=== PATIENT | female | born 1935 | race Caucasian/White ===

== ENCOUNTER 2016-11-19 20:47 | Emergency (ER) | payer OTHER ==
[~2016-11-19] VITALS: Ht 170.2 cm; Wt 73.3 kg
[~2016-11-19 20:47] MED LIST: ALTACE5 MG PO; ASPIR 8181 M1 PO; ASPIRIN81 M1 PO; B COMPLEX #11 EACH PO; B-COMPLEX-VITA1 EACH PO; BALANCED B COM1 EAC2 PO; BUSPAR5 MG PO; CALTRATE 600600 MG PO; CALTRATE600 MG PO; CARVEDILOL12.5 MG PO; CEREFOLIN TABL1 EACH; COREG12.5 M1 PO; COREG12.5 MG PO; COUMADIN2 MG PO; COUMADIN3 MG PO; COUMADIN5 MG PO; CYMBALTA30 MG PO; ENDOCET 5-3251 EACH PO; GARLIC1000 MG PO; HEALTHY HEART1 EAC1 PO; IRON325 M1 PO; LACTINEX PACKE1 EACH PO; LOVENOX60 MG/0.6 SC; LOVENOX80 MG/0.8 SC; METRONIDAZOLE500 MG PO; NABUMETONE500 M1 PO; NABUMETONE500 MG PO; OMEGA 3 1,0001 EACH PO; OMEPRAZOLE40 M1 PO; RED YEAST RICE600 M1; RED YEAST RICE600 MG PO; SERTRALINE HCL25 MG PO; SIMVASTATIN80 MG PO; TRAMADOL HCL50 MG PO; ULTRAM50 MG PO; VITAMIN B-12500 MC2 PO; VITAMIN B12-FO1 EACH PO; VITAMIN D2000 INTUN PO; VITAMIN E400 UNI6 PO; VYTORIN 10-801 EACH PO; WOMEN'S DAILY1 EAC3 PO; WOMEN'S DAILY1 EACH; XARELTO20 MG PO; Z BEC; ZEGERID OTC 201 EACH PO; ZETIA10 MG PO; ZOLOFT25 MG PO; ZYVOX600 MG PO; vitamin b12
[2016-11-19 21:50] LABS: MCH 31.7 PG (29.0-34.0); MCHC 33.2 G/DL (30.0-36.0); MCV 95.4 FL (83-99); MEAN PLAT.VOLUME 10.4 uM^3 (9.5-12.4); PLATELET COUNT 141 K/uL (156-360); RBC DIS.WIDTH-CV 12.1 % (11.8-14.6); RBC DIS.WIDTH-SD 41.9 % (39-53); RED BLOOD COUNT 3.88 M/uL (3.80-5.20); WHITE BLOOD COUNT 6.7 K/uL (4.1-10.2)
[2016-11-19 22:01] LABS: CHLORIDE 104 mEq/L (99-109); POTASSIUM 4.2 mEq/L (3.7-5.4); SODIUM 140 mEq/L (136-147)
[2016-11-19 22:03] LABS: GLUCOSE 98 mg/dL (70-99)
[2016-11-19 22:05] LABS: ANION GAP 11 MEQ/L (2-14); TOTAL BILIRUBIN 0.3 mg/dL (0.0-1.0)
[2016-11-19 22:07] LABS: ALKALINE PHOSPHATASE 50 IU/L (3-129); GFR ESTIMATE (CALCULATED) 51 mL/min/
[2016-11-19 22:08] LABS: UREA NITROGEN (BUN) 21 mg/dL (9-23)
[2016-11-19] MEDS ORDERED: AUGMENTIN875 MG PO (23:23)
[2016-11-19 23:52] VITALS: BP 138/60
== END 2016-11-19 23:53 | disposition home or self-care (01) ==
LOC: EME 20:47
DX: Y83.8 Other surgical procedures as the cause of abnormal reaction of the patient, or of later complication, without mention of misadventure at the time of the procedure (principal); R18.8 Other ascites; R10.9 Unspecified abdominal pain; K21.9 Gastro-esophageal reflux disease without esophagitis; I48.91 Unspecified atrial fibrillation; I10 Essential (primary) hypertension; E78.5 Hyperlipidemia, unspecified; Z87.891 Personal history of nicotine dependence
CPT/HCPCS: 74177; 80053; 81003; 85027; 99281; 99285; J7040

== ENCOUNTER 2016-11-22 16:04 | Inpatient (IN) | payer OTHER ==
[~2016-11-22] VITALS: Ht 154.9 cm; Wt 61.1 kg
[~2016-11-22 16:04] MED LIST changes: +AUGMENTIN875 MG PO
[2016-11-22 17:22] LABS: EOSINOPHIL (%) 2.4 % (0-5); EOSINOPHIL COUNT 0.1 K/uL (0-0.3); HEMATOCRIT 36.4 % (36.0-46.0); IMMATURE GRANULOCYTE (%) 0.6 % (0.0-0.7); INSTRUMENT ABS NEUTROPHIL CT 3.9 K/uL; LYMPHOCYTE COUNT 0.3 K/uL (1.0-2.8); MCH 31.1 PG (29.0-34.0); MCHC 32.7 G/DL (30.0-36.0); MEAN PLAT.VOLUME 9.3 uM^3 (9.5-12.4); MONOCYTE (%) 11.8 % (3-12); MONOCYTE COUNT 0.6 K/uL (0-0.8); NEUTROPHIL (%) 78.6 % (45-76); NEUTROPHIL COUNT 3.9 K/uL (1.8-6.4); PLATELET COUNT 118 K/uL (156-360); RBC DIS.WIDTH-SD 42.2 % (39-53); RED BLOOD COUNT 3.83 M/uL (3.80-5.20)
[2016-11-22 17:32] LABS: CHLORIDE 104 mEq/L (99-109); POTASSIUM 3.9 mEq/L (3.7-5.4); SODIUM 139 mEq/L (136-147)
[2016-11-22 17:34] LABS: GLUCOSE 99 mg/dL (70-99)
[2016-11-22 17:35] LABS: ANION GAP 13 MEQ/L (2-14)
[2016-11-22 17:38] LABS: GFR ESTIMATE (CALCULATED) 46 mL/min/
[2016-11-22 17:39] LABS: UREA NITROGEN (BUN) 18 mg/dL (9-23)
[2016-11-22] MEDS ORDERED: LINZESS145 MCG PO (18:07)
[2016-11-22 20:35] VITALS: BP 123/59
[2016-11-22 20:40] VITALS: BP 125/59
[2016-11-22 23:58] VITALS: BP 99/47
[2016-11-23 04:10] VITALS: BP 114/58
[2016-11-23 07:02] LABS: HEMATOCRIT 30.2 % (36.0-46.0); MCH 31.4 PG (29.0-34.0); MCHC 32.5 G/DL (30.0-36.0); MCV 96.8 FL (83-99); MEAN PLAT.VOLUME 10.3 uM^3 (9.5-12.4); PLATELET COUNT 109 K/uL (156-360); RBC DIS.WIDTH-CV 12.3 % (11.8-14.6); RBC DIS.WIDTH-SD 43.4 % (39-53); RED BLOOD COUNT 3.12 M/uL (3.80-5.20); WHITE BLOOD COUNT 3.6 K/uL (4.1-10.2)
[2016-11-23 07:13] LABS: ANION GAP 7 MEQ/L (2-14); CHLORIDE 110 MEQ/L (99-109); GFR ESTIMATE (CALCULATED) 51 mL/min/; GLUCOSE 96 mg/dL (70-99); POTASSIUM 3.9 MEQ/L (3.7-5.4); SAMPLE HEMOLYSIS CHECK 0; SAMPLE ICTERIC CHECK 0; SAMPLE LIPEMIA CHECK 0; SODIUM 142 MEQ/L (136-147); UREA NITROGEN (BUN) 17 mg/dL (9-23)
[2016-11-23 07:19] LABS: EOSINOPHIL (%) 3.1 % (0-5); EOSINOPHIL COUNT 0.1 K/uL (0-0.3); IMMATURE GRANULOCYTE (%) 0.6 % (0.0-0.7); INSTRUMENT ABS NEUTROPHIL CT 2.3 K/uL; LYMPHOCYTE COUNT 0.4 K/uL (1.0-2.8); MONOCYTE (%) 19.7 % (3-12); MONOCYTE COUNT 0.7 K/uL (0-0.8); NEUTROPHIL (%) 64.5 % (45-76); NEUTROPHIL COUNT 2.3 K/uL (1.8-6.4)
[2016-11-23 08:24] VITALS: BP 110/55
[2016-11-23 11:49] VITALS: BP 111/53
[2016-11-23 16:33] VITALS: BP 140/61
[2016-11-23 20:00] VITALS: BP 161/68
[2016-11-24] VITALS (7 sets, daily range): BP systolic 110–144; BP diastolic 54–68
[2016-11-24 07:03] LABS: HEMATOCRIT 31.7 % (36.0-46.0); MCH 31.8 PG (29.0-34.0); MCHC 33.1 G/DL (30.0-36.0); MCV 96.1 FL (83-99); MEAN PLAT.VOLUME 10.4 uM^3 (9.5-12.4); PLATELET COUNT 115 K/uL (156-360); RBC DIS.WIDTH-CV 11.8 % (11.8-14.6); RBC DIS.WIDTH-SD 41.5 % (39-53); WHITE BLOOD COUNT 3.9 K/uL (4.1-10.2)
[2016-11-24 07:29] LABS: ALKALINE PHOSPHATASE 49 IU/L (3-129); ANION GAP 13 MEQ/L (2-14); CHLORIDE 110 MEQ/L (99-109); GFR ESTIMATE (CALCULATED) > 59 mL/min/; GLUCOSE 106 mg/dL (70-99); POTASSIUM 4.2 MEQ/L (3.7-5.4); SAMPLE HEMOLYSIS CHECK 0; SAMPLE ICTERIC CHECK 0; SAMPLE LIPEMIA CHECK 0; SODIUM 141 MEQ/L (136-147); TOTAL BILIRUBIN 0.3 MG/DL (0.0-1.0); UREA NITROGEN (BUN) 16 mg/dL (9-23)
[2016-11-24 07:50] LABS: EOSINOPHIL (%) 0 % (0-5); IMMATURE GRANULOCYTE (%) 0.5 % (0.0-0.7); INSTRUMENT ABS NEUTROPHIL CT 3.2 K/uL; LYMPHOCYTE COUNT 0.6 K/uL (1.0-2.8); MONOCYTE (%) 1.6 % (3-12); MONOCYTE COUNT 0.1 K/uL (0-0.8); NEUTROPHIL (%) 83.1 % (45-76); NEUTROPHIL COUNT 3.2 K/uL (1.8-6.4)
[2016-11-25 03:58] VITALS: BP 141/60
[2016-11-25 07:00] LABS: EOSINOPHIL (%) 0.4 % (0-5); HEMATOCRIT 29.3 % (36.0-46.0); IMMATURE GRANULOCYTE (%) 0.6 % (0.0-0.7); INSTRUMENT ABS NEUTROPHIL CT 4.2 K/uL; LYMPHOCYTE COUNT 1.8 K/uL (1.0-2.8); MCH 31.3 PG (29.0-34.0); MCHC 33.1 G/DL (30.0-36.0); MCV 94.5 FL (83-99); MEAN PLAT.VOLUME 10.1 uM^3 (9.5-12.4); MONOCYTE (%) 12.2 % (3-12); MONOCYTE COUNT 0.9 K/uL (0-0.8); NEUTROPHIL (%) 60.4 % (45-76); NEUTROPHIL COUNT 4.2 K/uL (1.8-6.4); PLATELET COUNT 140 K/uL (156-360); RBC DIS.WIDTH-CV 12.1 % (11.8-14.6); RBC DIS.WIDTH-SD 41.8 % (39-53)
[2016-11-25 07:07] LABS: ALKALINE PHOSPHATASE 42 IU/L (3-129); ANION GAP 9 MEQ/L (2-14); CHLORIDE 111 MEQ/L (99-109); GFR ESTIMATE (CALCULATED) > 59 mL/min/; GLUCOSE 95 mg/dL (70-99); POTASSIUM 3.5 MEQ/L (3.7-5.4); SAMPLE HEMOLYSIS CHECK 0; SAMPLE ICTERIC CHECK 0; SAMPLE LIPEMIA CHECK 0; SODIUM 143 MEQ/L (136-147); TOTAL BILIRUBIN 0.3 MG/DL (0.0-1.0); UREA NITROGEN (BUN) 22 mg/dL (9-23)
[2016-11-25 07:41] VITALS: BP 145/65
[2016-11-25] MEDS ORDERED: KEFLEX500 MG PO (09:13)
[2016-11-25] MEDS ORDERED: SIMVASTATIN80 MG PO (11:35)
== END 2016-11-25 13:21 | disposition home health service (06) | DRG 857 ==
LOC: EME 16:04 → EDOF 18:34 → 3EAST 18:34
PROVIDERS: Emergency Medicine; Hospitalist
PROC: 0JB80ZZ Excision of Abdomen Subcutaneous Tissue and Fascia, Open Approach (ICD-10-PCS; principal; 2016-11-23)
DX: T81.4XXA Infection following a procedure, initial encounter (principal); D61.818 Other pancytopenia; I11.0 Hypertensive heart disease with heart failure; I48.0 Paroxysmal atrial fibrillation; I50.9 Heart failure, unspecified; L02.211 Cutaneous abscess of abdominal wall; L03.311 Cellulitis of abdominal wall; I25.10 Atherosclerotic heart disease of native coronary artery without angina pectoris; I87.8 Other specified disorders of veins; E78.5 Hyperlipidemia, unspecified; K21.9 Gastro-esophageal reflux disease without esophagitis; K43.2 Incisional hernia without obstruction or gangrene; K76.0 Fatty (change of) liver, not elsewhere classified; K57.90 Diverticulosis of intestine, part unspecified, without perforation or abscess without bleeding; L03.116 Cellulitis of left lower limb; M41.9 Scoliosis, unspecified; T36.0X5A Adverse effect of penicillins, initial encounter; Z80.1 Family history of malignant neoplasm of trachea, bronchus and lung; Z82.49 Family history of ischemic heart disease and other diseases of the circulatory system; Z86.718 Personal history of other venous thrombosis and embolism; Z87.891 Personal history of nicotine dependence; F41.9 Anxiety disorder, unspecified; R21 Rash and other nonspecific skin eruption; R23.3 Spontaneous ecchymoses; Z95.828 Presence of other vascular implants and grafts; L90.5 Scar conditions and fibrosis of skin; B96.20 Unspecified Escherichia coli [E. coli] as the cause of diseases classified elsewhere
CPT/HCPCS: 74177; 80048; 80053; 80202; 81003; 83605; 85025; 85027; 87040; 87070; 87075; 87077; 87186; 87205; 88305; 99281; 99285; J0131; J0330; J0696; J1100; J1170; J1644; J2405; J2543; J3010; J3370; J7030; J7040; J7050

== ENCOUNTER 2017-03-01 21:02 | Inpatient (IN) | payer OTHER ==
[~2017-03-01] VITALS: Ht 154.9 cm; Wt 74.8 kg
[~2017-03-01 21:02] MED LIST changes: +KEFLEX500 MG PO; +LINZESS145 MCG PO
[2017-03-02] MEDS ORDERED: ALTACE5 MG PO (10:39)
[2017-03-02] MEDS ORDERED: LASIX20 MG PO (10:43)
[2017-03-02 10:44] VITALS: BP 172/69
[2017-03-02 16:35] VITALS: BP 127/59
[2017-03-02 19:45] VITALS: BP 107/51
[2017-03-02 23:31] VITALS: BP 107/57
[2017-03-03 03:15] VITALS: BP 104/52
[2017-03-03 05:55] LABS: HEMATOCRIT 32.7 % (36.0-46.0); MCH 31.5 PG (29.0-34.0); MCHC 32.4 G/DL (30.0-36.0); MCV 97.3 FL (83-99); MEAN PLAT.VOLUME 9.7 uM^3 (9.5-12.4); PLATELET COUNT 115 K/uL (156-360); RBC DIS.WIDTH-CV 12.4 % (11.8-14.6); RBC DIS.WIDTH-SD 44.2 % (39-53); RED BLOOD COUNT 3.36 M/uL (3.80-5.20); WHITE BLOOD COUNT 9.2 K/uL (4.1-10.2)
[2017-03-03 06:20] LABS: ANION GAP 7 MEQ/L (2-14); CHLORIDE 108 MEQ/L (99-109); GFR ESTIMATE (CALCULATED) 51 mL/min/; GLUCOSE 138 mg/dL (70-99); POTASSIUM 4.5 MEQ/L (3.7-5.4); SAMPLE HEMOLYSIS CHECK 0; SAMPLE ICTERIC CHECK 0; SAMPLE LIPEMIA CHECK 0; SODIUM 138 MEQ/L (136-147); UREA NITROGEN (BUN) 18 mg/dL (9-23)
[2017-03-03 08:35] VITALS: BP 132/62
[2017-03-03 12:46] VITALS: BP 111/60
[2017-03-03 15:49] VITALS: BP 136/59
[2017-03-03 20:00] VITALS: BP 148/72
[2017-03-04 00:32] VITALS: BP 119/68
[2017-03-04 02:54] VITALS: BP 125/77
[2017-03-04 04:44] LABS: HEMATOCRIT 30.9 % (36.0-46.0); MCH 31.5 PG (29.0-34.0); MCHC 32.4 G/DL (30.0-36.0); MCV 97.5 FL (83-99); MEAN PLAT.VOLUME 10.3 uM^3 (9.5-12.4); PLATELET COUNT 104 K/uL (156-360); RBC DIS.WIDTH-CV 12.5 % (11.8-14.6); RBC DIS.WIDTH-SD 44.6 % (39-53); RED BLOOD COUNT 3.17 M/uL (3.80-5.20); WHITE BLOOD COUNT 6.3 K/uL (4.1-10.2)
[2017-03-04 04:58] LABS: CHLORIDE 112 mEq/L (99-109); POTASSIUM 4.3 mEq/L (3.7-5.4); SODIUM 144 mEq/L (136-147)
[2017-03-04 05:00] LABS: GLUCOSE 116 mg/dL (70-99)
[2017-03-04 05:01] LABS: ANION GAP 8 MEQ/L (2-14)
[2017-03-04 05:03] LABS: GFR ESTIMATE (CALCULATED) 57 mL/min/
[2017-03-04 05:04] LABS: UREA NITROGEN (BUN) 17 mg/dL (9-23)
[2017-03-04 08:38] VITALS: BP 146/64
[2017-03-04 16:23] VITALS: BP 136/63
== END 2017-03-04 16:23 | disposition home or self-care (01) | DRG 330 ==
LOC: ENRESERV 21:02 → 2SOUTH 03-02 08:45 → 4EAST 03-02 09:46 → 2SOUTH 03-02 10:55 → ENRESERV 03-02 14:00 → CANRESERV 03-02 14:00 → 2SOUTH 03-02 14:15 → ENRESERV 03-02 14:16 → 4EAST 03-02 16:35
PROVIDERS: Surgery
DX: K43.2 Incisional hernia without obstruction or gangrene (principal); I25.10 Atherosclerotic heart disease of native coronary artery without angina pectoris; I10 Essential (primary) hypertension; M06.9 Rheumatoid arthritis, unspecified; M41.9 Scoliosis, unspecified; K76.0 Fatty (change of) liver, not elsewhere classified; E78.2 Mixed hyperlipidemia; K66.0 Peritoneal adhesions (postprocedural) (postinfection); I34.0 Nonrheumatic mitral (valve) insufficiency; K57.90 Diverticulosis of intestine, part unspecified, without perforation or abscess without bleeding; E66.9 Obesity, unspecified; L02.211 Cutaneous abscess of abdominal wall; I48.0 Paroxysmal atrial fibrillation; K59.00 Constipation, unspecified; M81.0 Age-related osteoporosis without current pathological fracture; Z85.828 Personal history of other malignant neoplasm of skin; Z86.711 Personal history of pulmonary embolism; Z86.718 Personal history of other venous thrombosis and embolism; Z90.49 Acquired absence of other specified parts of digestive tract; Z53.31 Laparoscopic surgical procedure converted to open procedure; Z87.891 Personal history of nicotine dependence; Z80.0 Family history of malignant neoplasm of digestive organs
CPT/HCPCS: 36415; 80048; 85025; 85027; C1781; J0330; J0690; J1100; J1644; J1885; J2001; J2405; J2710; J2795; J3010; J3475; Q0175

== ENCOUNTER 2017-08-30 20:57 | Inpatient (IN) | payer OTHER ==
[~2017-08-30] VITALS: Ht 152.4 cm; Wt 73.6 kg
[~2017-08-30 20:57] MED LIST changes: +LASIX20 MG PO
[2017-08-30 21:28] LABS: HEMATOCRIT 39.2 % (36.0-46.0); MCH 31.8 PG (29.0-34.0); MCHC 33.2 G/DL (30.0-36.0); MCV 95.8 FL (83-99); PLATELET COUNT 134 K/uL (156-360); RBC DIS.WIDTH-CV 12.7 % (11.8-14.6); RBC DIS.WIDTH-SD 44.4 % (39-53); RED BLOOD COUNT 4.09 M/uL (3.80-5.20)
[2017-08-30 21:37] LABS: ALBUMIN 4.2 g/dL (3.2-4.8)
[2017-08-30 21:38] LABS: CHLORIDE 104 mEq/L (99-109); POTASSIUM 3.6 mEq/L (3.7-5.4); SODIUM 142 mEq/L (136-147)
[2017-08-30 21:40] LABS: GLUCOSE 124 mg/dL (70-99); TOTAL PROTEIN 7.6 g/dL (6.4-8.3)
[2017-08-30 21:42] LABS: TOTAL BILIRUBIN 0.6 mg/dL (0.0-1.0)
[2017-08-30 21:43] LABS: ALKALINE PHOSPHATASE 58 IU/L (3-129)
[2017-08-30 21:44] LABS: CREATININE 1.1 mg/dL (0.6-1.3); GFR ESTIMATE (CALCULATED) 51 mL/min/
[2017-08-30 21:45] LABS: AST (GOT) 30 IU/L (2-34); UREA NITROGEN (BUN) 20 mg/dL (9-23)
[2017-08-30 21:46] LABS: ALT (GPT) 21 IU/L (3-49)
[2017-08-30 23:59] LABS: APPEARANCE CLEAR ((CLEAR)); BILIRUBIN NEGATIVE; BLOOD NEGATIVE; COLOR YELLOW ((YELLOW)); GLUCOSE (STRIP) NEGATIVE; KETONES NEGATIVE; LEUKOCYTES NEGATIVE; NITRITE NEGATIVE; PROTEIN (STRIP) NEGATIVE; SPECIFIC GRAVITY 1.021 (1.000-1.030); UCUL ADDED? NO; UROBILINOGEN 0.2 MG/DL (0.2-1.0)
[2017-08-31 03:18] LABS: INTER. NORMALIZED RATIO 1.4
[2017-08-31 03:20] LABS: PTT 31.7 SEC (25-37)
[2017-08-31 07:42] VITALS: BP 144/67
[2017-08-31] MEDS ORDERED: LASIX20 MG PO (11:38)
[2017-08-31 11:55] VITALS: BP 122/58
[2017-08-31 15:45] VITALS: BP 133/63
[2017-08-31 23:04] VITALS: BP 187/84
[2017-08-31 23:47] VITALS: BP 165/60
[2017-09-01] VITALS (21 sets, daily range): BP systolic 132–169; BP diastolic 55–81
[2017-09-01 06:19] LABS: HEMATOCRIT 38.7 % (36.0-46.0); HEMOGLOBIN 12.4 G/DL (11.9-15.5); MCV 96.8 FL (83-99); PLATELET COUNT 121 K/uL (156-360); RBC DIS.WIDTH-CV 12.4 % (11.8-14.6); RBC DIS.WIDTH-SD 44.5 % (39-53); WHITE BLOOD COUNT 5.8 K/uL (4.1-10.2)
[2017-09-01 06:34] LABS: CHLORIDE 109 MEQ/L (99-109); CREATININE 1.2 MG/DL (0.6-1.3); GFR ESTIMATE (CALCULATED) 46 mL/min/; GLUCOSE 173 mg/dL (70-99); MAGNESIUM 1.4 mg/dl (1.3-2.7); PHOSPHORUS 3.4 mg/dL (2.5-4.9); SODIUM 144 MEQ/L (136-147); UREA NITROGEN (BUN) 17 mg/dL (9-23)
[2017-09-01 06:45] LABS: POTASSIUM 4.6 MEQ/L (3.7-5.4)
[2017-09-02] VITALS (18 sets, daily range): BP systolic 90–158; BP diastolic 43–92
[2017-09-03 00:07] VITALS: BP 131/62
[2017-09-03 03:46] VITALS: BP 137/63
[2017-09-03 06:26] LABS: HEMATOCRIT 31.8 % (36.0-46.0); MCH 31.9 PG (29.0-34.0); MCHC 32.7 G/DL (30.0-36.0); MCV 97.5 FL (83-99); PLATELET COUNT 108 K/uL (156-360); RBC DIS.WIDTH-CV 12.8 % (11.8-14.6); RBC DIS.WIDTH-SD 45.9 % (39-53); RED BLOOD COUNT 3.26 M/uL (3.80-5.20)
[2017-09-03 06:27] LABS: HEMOGLOBIN 10.4 G/DL (11.9-15.5)
[2017-09-03 06:47] LABS: CHLORIDE 110 MEQ/L (99-109); CREATININE 0.8 MG/DL (0.6-1.3); GFR ESTIMATE (CALCULATED) > 59 mL/min/; POTASSIUM 3.8 MEQ/L (3.7-5.4); SODIUM 143 MEQ/L (136-147); UREA NITROGEN (BUN) 10 mg/dL (9-23)
[2017-09-03 06:50] LABS: GLUCOSE 113 mg/dL (70-99)
[2017-09-03 10:19] VITALS: BP 138/62
[2017-09-03 19:43] VITALS: BP 137/60
[2017-09-04] VITALS (7 sets, daily range): BP systolic 115–158; BP diastolic 58–72
[2017-09-04 06:44] LABS: HEMATOCRIT 28.4 % (36.0-46.0); HEMOGLOBIN 9.2 G/DL (11.9-15.5); MCH 31.4 PG (29.0-34.0); MCHC 32.4 G/DL (30.0-36.0); MCV 96.9 FL (83-99); PLATELET COUNT 99 K/uL (156-360); RBC DIS.WIDTH-CV 12.7 % (11.8-14.6); RBC DIS.WIDTH-SD 45.1 % (39-53); RED BLOOD COUNT 2.93 M/uL (3.80-5.20); WHITE BLOOD COUNT 6.6 K/uL (4.1-10.2)
[2017-09-04 07:10] LABS: CHLORIDE 110 MEQ/L (99-109); CREATININE 0.6 MG/DL (0.6-1.3); GFR ESTIMATE (CALCULATED) > 59 mL/min/; GLUCOSE 110 mg/dL (70-99); POTASSIUM 3.7 MEQ/L (3.7-5.4); SODIUM 145 MEQ/L (136-147); UREA NITROGEN (BUN) 8 mg/dL (9-23)
[2017-09-05 03:55] VITALS: BP 140/64
[2017-09-05 06:01] LABS: HEMATOCRIT 28.4 % (36.0-46.0); HEMOGLOBIN 9.5 G/DL (11.9-15.5); MCH 32.1 PG (29.0-34.0); MCHC 33.5 G/DL (30.0-36.0); MCV 95.9 FL (83-99); PLATELET COUNT 107 K/uL (156-360); RBC DIS.WIDTH-CV 12.9 % (11.8-14.6); RBC DIS.WIDTH-SD 45.5 % (39-53); RED BLOOD COUNT 2.96 M/uL (3.80-5.20); WHITE BLOOD COUNT 7.4 K/uL (4.1-10.2)
[2017-09-05 06:23] LABS: CHLORIDE 109 MEQ/L (99-109); CREATININE 0.7 MG/DL (0.6-1.3); GFR ESTIMATE (CALCULATED) > 59 mL/min/; GLUCOSE 98 mg/dL (70-99); POTASSIUM 3.4 MEQ/L (3.7-5.4); SODIUM 145 MEQ/L (136-147); UREA NITROGEN (BUN) 9 mg/dL (9-23)
[2017-09-05 07:54] VITALS: BP 126/61
[2017-09-05 16:31] VITALS: BP 118/52
[2017-09-06] VITALS: BP 127/57
[2017-09-06 07:57] VITALS: BP 116/54
[2017-09-06 11:11] VITALS: BP 131/64
[2017-09-06] MEDS ORDERED: BACTRIM,SEPT1 TABLET PO (11:14)
[2017-09-06] MEDS ORDERED: NIFEREX-150,FE150 MG PO (11:33)
[2017-09-06 15:53] VITALS: BP 127/58
== END 2017-09-06 18:22 | disposition home or self-care (01) | DRG 330 ==
LOC: EME → EDBD 20:57 → 2EAST 08-31 02:27 → EDOF 08-31 02:27 → 4WEST 08-31 02:27 → ENRESERV 08-31 02:30 → 2EAST 08-31 07:42 → ENRESERV 08-31 21:48 → 4WEST 08-31 23:00 → ENRESERV 09-02 13:25 → 2EAST 09-02 16:20 → ENPENDDIS 09-06 → 2EAST 09-06 18:22
PROVIDERS: Surgery
DX: K43.0 Incisional hernia with obstruction, without gangrene (principal); K56.51 Intestinal adhesions [bands], with partial obstruction; K91.71 Accidental puncture and laceration of a digestive system organ or structure during a digestive system procedure; Y83.8 Other surgical procedures as the cause of abnormal reaction of the patient, or of later complication, without mention of misadventure at the time of the procedure; K40.90 Unilateral inguinal hernia, without obstruction or gangrene, not specified as recurrent; C50.912 Malignant neoplasm of unspecified site of left female breast; I11.0 Hypertensive heart disease with heart failure; I50.9 Heart failure, unspecified; I48.2 Chronic atrial fibrillation; R79.1 Abnormal coagulation profile; T45.515A Adverse effect of anticoagulants, initial encounter; I87.8 Other specified disorders of veins; E66.9 Obesity, unspecified; Z68.33 Body mass index [BMI] 33.0-33.9, adult; D72.829 Elevated white blood cell count, unspecified; D53.9 Nutritional anemia, unspecified; K57.90 Diverticulosis of intestine, part unspecified, without perforation or abscess without bleeding; I25.10 Atherosclerotic heart disease of native coronary artery without angina pectoris; E78.5 Hyperlipidemia, unspecified; K21.9 Gastro-esophageal reflux disease without esophagitis; M41.9 Scoliosis, unspecified; F41.9 Anxiety disorder, unspecified; F32.9 Major depressive disorder, single episode, unspecified; Z86.718 Personal history of other venous thrombosis and embolism; Z85.828 Personal history of other malignant neoplasm of skin; Z87.891 Personal history of nicotine dependence
CPT/HCPCS: 71045; 74021; 74176; 74177; 80048; 80053; 81003; 83605; 83735; 84100; 85027; 85610; 85730; 86850; 86870; 86900; 86901; 86905; 86920; 87641; 88307; 94002; 94799; 97530 GO; 97530 GP; 99281; 99285; C1753; C1781; C9113; J0131; J0330; J1100; J1170; J1200; J1644; J2060; J2250; J2270; J2405; J2710; J2765; J7040; J7050; S0074

== ENCOUNTER → 2017-09-07 | Outpatient (CLI) | payer OTHER ==
[~2017-09-07] MED LIST changes: +BACTRIM,SEPT1 TABLET PO; +NIFEREX-150,FE150 MG PO
== END | disposition home or self-care (01) ==
LOC: AMB 11:17
PROC: 0H97XZZ Drainage of Abdomen Skin, External Approach (ICD-10-PCS; principal; 2017-09-07)
DX: L76.34 Postprocedural seroma of skin and subcutaneous tissue following other procedure (principal); Y83.8 Other surgical procedures as the cause of abnormal reaction of the patient, or of later complication, without mention of misadventure at the time of the procedure
CPT/HCPCS: 87070; 87075; 87076; 87185; 87205; 99213

== ENCOUNTER 2017-11-21 05:25 | Day surgery (SDC) | payer OTHER ==
[~2017-11-21] VITALS: Ht 152.4 cm; Wt 71.6 kg
[~2017-11-21 05:25] MED LIST changes: +VITAMIN B COMP1 EACH PO
[2017-11-21 06:07] LABS: PTT 25.3 SEC (25-37)
[2017-11-21 06:09] LABS: INTER. NORMALIZED RATIO 1.1
[2017-11-21 06:24] VITALS: BP 150/68
[2017-11-21 13:04] VITALS: BP 136/63
[2017-11-21 16:30] VITALS: BP 118/58
[2017-11-21 20:08] VITALS: BP 111/56
[2017-11-21 23:55] VITALS: BP 118/56
[2017-11-22 03:49] VITALS: BP 148/67
[2017-11-22 06:35] LABS: HEMATOCRIT 32.3 % (36.0-46.0); HEMOGLOBIN 10.5 G/DL (11.9-15.5); MCHC 32.5 G/DL (30.0-36.0); MCV 95.3 FL (83-99); PLATELET COUNT 113 K/uL (156-360); RBC DIS.WIDTH-CV 12.7 % (11.8-14.6); RBC DIS.WIDTH-SD 44.1 % (39-53); RED BLOOD COUNT 3.39 M/uL (3.80-5.20)
[2017-11-22 07:15] VITALS: BP 149/65
[2017-11-22] MEDS ORDERED: HYDROMORPHONE HC2 MG PO (08:03)
[2017-11-22 11:34] VITALS: BP 124/59
== END 2017-11-22 15:14 | disposition home or self-care (01) ==
LOC: SDC 05:25 → NUC 07:00 → SDC 07:00 → 2SOUTH 10:51 → 2EASTP 10:51 → 2SOUTH 10:51 → ENRESERV 11:44 → 2EASTP 12:30
PROVIDERS: Surgery
DX: C50.912 Malignant neoplasm of unspecified site of left female breast (principal); I48.91 Unspecified atrial fibrillation; K21.9 Gastro-esophageal reflux disease without esophagitis; E78.5 Hyperlipidemia, unspecified; I11.0 Hypertensive heart disease with heart failure; I50.9 Heart failure, unspecified; Z87.891 Personal history of nicotine dependence; Z79.01 Long term (current) use of anticoagulants; Z88.0 Allergy status to penicillin
CPT/HCPCS: 78195; 78999; 85027; 85610; 85730; 87641; 88305; 88309; 88341 TC; 88342 TC; 94799; A9541; G0378; J0131; J1170; J3010; J3480; S0020

== ENCOUNTER 2017-12-13 07:34 | Day surgery (SDC) | payer OTHER ==
[~2017-12-13 07:34] MED LIST changes: +HYDROMORPHONE HC2 MG PO
== END 2017-12-13 10:15 | disposition home or self-care (01) ==
LOC: CATH 07:34
DX: I87.8 Other specified disorders of veins (principal); C50.912 Malignant neoplasm of unspecified site of left female breast; I10 Essential (primary) hypertension; E78.5 Hyperlipidemia, unspecified; M19.90 Unspecified osteoarthritis, unspecified site; I48.91 Unspecified atrial fibrillation; Z87.891 Personal history of nicotine dependence; Z80.3 Family history of malignant neoplasm of breast; Z82.49 Family history of ischemic heart disease and other diseases of the circulatory system; Z84.1 Family history of disorders of kidney and ureter; Z80.1 Family history of malignant neoplasm of trachea, bronchus and lung; Z79.01 Long term (current) use of anticoagulants
CPT/HCPCS: C1788; C1894; J0690; J1644; J2250; J3010; S0020